=== PATIENT | female | born 1970 | race American Indian/Alaskan Native ===

== ENCOUNTER 2021-06-16 05:06 | Emergency (ER) | payer SELFPAY ==
[2021-06-16] MEDS ORDERED: SODIUM CHLORIDE 0.9% 1000 ML 1,000 ML IV ONE (05:36)
[2021-06-16] MEDS ORDERED: ONDANSETRON 4 MG/2 ML INJ IV ONE (05:43)
[2021-06-16 06:21] LABS: Hematocrit 40.8 % (30.3-42.9); Mean Corpuscular HGB Conc 34 % (30-34); Mean Corpuscular Volume 101 fl (79-97); Platelet Count 244 K/mm3 (140-440); Red Blood Count 4.04 M/mm3 (3.65-5.03); Red Cell Distribution Width 15.3 % (13.2-15.2)
--- NOTE | 2021-06-16 06:27 | Cat Scan Report ---
CT head without contrast INDICATION : Altered mental status after cranial injury. TECHNIQUE: Axial imaging performed from the skull apex through the skull base without the use of con trast. All CT examinations performed at this facility utilize dose modulation, iterative reconstruct ion or weight-based dosing, when appropriate, to reduce radiation dose to as low as reasonably achiev able. COMPARISON: None FINDINGS: No acute intracranial hemorrhage or parenchymal abnormality. Ventricles are normal in si ze and appear symmetric. Soft tissues including the orbits appear normal. No acute osseous abnorm ality. Sinuses and mastoid air cells are clear. IMPRESSION: No acute abnormality. Signer Name: Nixon Wheeler MD Signed: 06/16/2021 6:23 AM Workstation Name: [employer]
--- NOTE | 2021-06-16 06:29 | Cat Scan Report ---
CT cervical spine spine without contrast INDICATION: Fall / Altered Mental Status. Neck pain after injury TECHNIQUE: Axial imaging performed through the cervical spine without the use of contrast. Sagittal and coronal reconstructed images were also reviewed. All CT scans at this location are performed us ing CT dose reduction for ALARA by means of automated exposure control. COMPARISON: None FINDINGS: Alignment: Spinal alignment is normal. Bones: There is no acute osseous abnormality. Mild multilevel discogenic DJD is present. Soft tissues: No acute or significant incidental soft tissue abnormality. IMPRESSION: No acute abnormality. Signer Name: Nixon Wheeler MD Signed: 06/16/2021 6:25 AM Workstation Name: [email or web address]
[2021-06-16 06:38] LABS: Alanine Aminotransferase 18 units/L (7-56); Albumin 4.8 g/dL (3.9-5); Blood Urea Nitrogen 15 mg/dL (7-17); Calcium 10.5 mg/dL (8.4-10.2); Hemolysis Index 20
[2021-06-16 06:51] LABS: BUN/Creatinine Ratio 21
[2021-06-16] MEDS ORDERED: HALOPERIDOL LACTATE 5 MG/1 ML INJ IM PRN (07:06)
[2021-06-16] MEDS ORDERED: LORazepam 2 MG/ML VIAL IM PRN (07:06)
[2021-06-16] MEDS ORDERED: chlordiazePOXIDE 25 MG CAP PO PRN ×2 (07:08)
[2021-06-16] MEDS ORDERED: LORazepam 2 MG/ML VIAL IV PRN ×2 (07:08)
[2021-06-16] MEDS ORDERED: DEXTROSE 10% *Hypoglycemia IV PRN (07:09)
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
[2021-06-16] MEDS ORDERED: THIAMINE 100 MG, FOLIC ACID 1 MG, MULTIPLE VITAMIN INJ, ADULT 10 ML in SODIUM CHLORIDE ... IV ONE (08:00)
[2021-06-16] MEDS ORDERED: SODIUM CHLORIDE 0.9% 1000 ML 1,000 ML ONE (08:50)
[2021-06-16 11:23] VITALS: BP 120/79
--- NOTE | 2021-06-16 20:33 | Electrocardiograph Report ---
[facility] Test Date: 2021-06-16 Test Time: 06:23:44 Pat Name: COLTON LOZANO Department: Room: Gender: F Conservation Policy Analyst: RICCARDO : 1970 Requested By: CHEIKH BUSH Order Number: [id number] Reading MD: Jim Smith Measurements Intervals [place] Rate: 87 P: 67 CA: 136 QRS: 50 QRSD: 91 T: 7 QT: 379 QTc: 456 Interpretive Statements Sinus rhythm Early repolarization ST changes No previous ECG available for comparison Electronically Signed On 06-16-2021 20:33:10 EDT by Jim Smith
== END 2021-06-16 14:00 | disposition home or self-care (01) ==
LOC: ED 05:06
DX: S09.90XA Unspecified injury of head, initial encounter (principal); F10.129 Alcohol abuse with intoxication, unspecified; E86.0 Dehydration; X58.XXXA Exposure to other specified factors, initial encounter; Y93.89 Activity, other specified; Y92.89 Other specified places as the place of occurrence of the external cause; Y99.8 Other external cause status; Y90.9 Presence of alcohol in blood, level not specified
CPT/HCPCS: 36415; 70450; 72125; 80053; 82550; 82962; 83735; 84702; 85027; 93005; 96361; 96365; 96366; 96372; 96375; 99284; J1630; J2060; J2405; J3411; J3490; J7030; 80320; Q0162; G0480